=== PATIENT | female | born 1950 | race Two or more races ===

== ENCOUNTER 2016-04-05 08:20 | Day surgery (SDC) | payer OTHER ==
[2016-04-05] MEDS ORDERED: IV START KIT ONE (08:53)
[2016-04-05] MEDS ORDERED: LACTATED RINGERS 1,000 ML IV SCH (09:00)
[2016-04-05] MEDS ORDERED: PROPOFOL 20 ML IV ONE (10:12)
== END 2016-04-05 10:55 | disposition home or self-care (01) ==
LOC: SDC 08:20
PROVIDERS: ATTEND Family Medicine
PROC: 0DJD8ZZ Inspection of Lower Intestinal Tract, Via Natural or Artificial Opening Endoscopic (ICD-10-PCS; principal; 2016-04-05)
DX: Z12.11 Encounter for screening for malignant neoplasm of colon (principal); K57.30 Diverticulosis of large intestine without perforation or abscess without bleeding; E11.9 Type 2 diabetes mellitus without complications; L71.9 Rosacea, unspecified
CPT/HCPCS: 45378; J7120